=== PATIENT | female | born 2000 | race Caucasian/White ===

== ENCOUNTER 2019-07-05 00:20 | Observation (INO) ==
[2019-07-05] MEDS ORDERED: DOCUSATE SODIUM 100 MG CAPSULE PO PRN (03:27)
[2019-07-05] MEDS ORDERED: ONDANSETRON 4 MG/2 ML VIAL IV PRN (03:27)
[2019-07-05] MEDS ORDERED: NICOTINE 21 MG/24 HR PATCH TRANSDERM PRN (03:27)
[2019-07-05] MEDS ORDERED: MAGNESIUM SULF RIDER 2 GM in PREMIX 1 EACH IV PRN (04:39)
[2019-07-05] MEDS ORDERED: MAGNESIUM SULF RIDER 4 GM in PREMIX 1 EACH IV PRN (04:39)
[2019-07-05] MEDS: ACETAMINOPHEN 325 MG TABLET PO PRN ×2 (04:46→11:25)
[2019-07-05 05:05] LABS: Basophils # 0.1 10*3/uL (0.0-0.2); Basophils % 0.8 % (0.0-0.8); Eosinophils # 0.1 10*3/uL (0.0-0.87); Eosinophils % 1.8 % (0.00-10.9); Hematocrit 38.7 VOL% (35.7-47.0); Hemoglobin 13.1 GM/DL (12.0-16.0); Immature Granulocytes % 0.5 %; Immature Granulocytes Absolute 0.03 #; Lymphocytes # 2.8 10*3/uL (1.4-4.0); Lymphocytes % 42.6 % (21.3-54.2); Mean Corpuscular HGB Conc 33.9 GM/DL (32-36); Mean Corpuscular Volume 90.2 FL (87-102); Mean Platelet Volume 10.1 FL (9.6-12.0); Monocytes % 9.6 % (1.7-12.7); Neutrophils % 44.7 % (38.7-73.9); Platelet Count 269 T/CUMM (130-400); Red Blood Count 4.29 MC/CUMM (3.8-5.5); Red Cell Distribution Width 12.7 % (9.3-17.3); White Blood Count 6.6 T/CUMM (4-12)
[2019-07-05 05:07] LABS: Partial Thromboplastin Time 28.6 SECS (20.8-36.0)
[2019-07-05 05:45] LABS: Albumin 3.5 G/DL (3.4-5.0); Bilirubin,Total 0.4 MG/DL (0.2-1.0); Calcium 8.7 MG/DL (8.5-10.1); Osmolality,Calculated 275.5 MOS/KG (273-304); Thyroid Stimulating Hormone 1.38 uIU/ml (0.358-3.74); Total Protein 7.2 G/DL (6.4-8.3); VLDL CHOLESTEROL 36.2 MG/DL
[2019-07-05] MEDS ORDERED: ENOXAPARIN 40 MG/0.4 ML SYRINGE SUBCUT SCH (06:00)
[2019-07-05] MEDS ORDERED: AMOXICILLIN 500 MG CAPSULE PO SCH (08:00)
[2019-07-05] MEDS ORDERED: POTASSIUM CHLORIDE 20 MEQ TABLET PO ONE (08:32)
[2019-07-05] MEDS ORDERED: POTASSIUM CHLORIDE 20 MEQ TABLET PO PRN (08:34)
[2019-07-05] MEDS ORDERED: predniSONE 10 MG TABLET PO SCH (09:00)
[2019-07-05] MEDS ORDERED: ASPIRIN EC 81 MG TABLET PO SCH (09:00)
[2019-07-05] MEDS ORDERED: ACYCLOVIR 200 MG CAPSULE PO SCH (10:00)
[2019-07-05 12:52] VITALS: BP 115/69
== END 2019-07-05 13:49 | disposition home or self-care (01) ==
LOC: N.TELEN → SUATTDRO 01:51
PROVIDERS: ADMIT Internal Medicine; ATTEND Emergency Medicine

== ENCOUNTER 2022-05-27 19:55 | Inpatient (IN) ==
[2022-05-27] MEDS ORDERED: OXYTOCIN/LR 20 UNIT/1,000 ML BAG IV ONE (20:20)
[2022-05-27] MEDS ORDERED: miSOPROStoL 200 MCG TABLET RECTAL PRN (20:20)
[2022-05-27] MEDS ORDERED: LACTATED RINGERS 500 ML IV PRN (20:20)
[2022-05-27] MEDS ORDERED: ONDANSETRON 4 MG/2 ML VIAL IV PRN (20:20)
[2022-05-27] MEDS ORDERED: TRANEXAMIC ACID 1,000 MG in SODIUM CHLORIDE 0.9% 100 ML IV PRN (20:20)
[2022-05-27] MEDS ORDERED: LACTATED RINGERS 250 ML IV ONE (20:20)
[2022-05-27] MEDS ORDERED: METHYLERGONOVINE 0.2 MG/1 ML AMP IM PRN (20:20)
[2022-05-27] MEDS ORDERED: CARBOPROST TROMETHAMINE 250 MCG/ML AMP IM PRN (20:20)
[2022-05-27 20:50] LABS: Basophils % 0.4 % (0.0-0.8); Eosinophils # 0.1 10*3/uL (0.0-0.87); Eosinophils % 0.8 % (0.00-10.9); Hematocrit 35.6 VOL% (35.7-47.0); Hemoglobin 11.6 GM/DL (12.0-16.0); Immature Granulocytes % 1.1 %; Immature Granulocytes Absolute 0.08 #; Lymphocytes # 1.3 10*3/uL (1.4-4.0); Lymphocytes % 18.8 % (21.3-54.2); Mean Corpuscular HGB Conc 32.6 GM/DL (32-36); Mean Corpuscular Volume 89.7 FL (87-102); Mean Platelet Volume 11.3 FL (9.6-12.0); Monocytes # 0.5 10*3/uL (0.11-0.8); Monocytes % 7.2 % (1.7-12.7); Neutrophils % 71.7 % (38.7-73.9); Platelet Count 225 T/CUMM (130-400); Red Blood Count 3.97 MC/CUMM (3.8-5.5); Red Cell Distribution Width 16.6 % (9.3-17.3); White Blood Count 7.1 T/CUMM (4-12)
[2022-05-27 21:07] LABS: Albumin 2.9 G/DL (3.4-5.0); Bilirubin,Total 0.4 MG/DL (0.20-1.00); Calcium 9.4 MG/DL (8.5-10.1); Osmolality,Calculated 273.5 MOS/KG (273-304); Potassium 3.5 MMOL/L (3.5-5.1); Total Protein 7.1 G/DL (6.4-8.2)
[2022-05-28] MEDS ORDERED: ACETAMINOPHEN 500 MG TABLET PO ONE ×2 (03:00→23:55)
[2022-05-28] MEDS: LACTATED RINGERS 1,000 ML IV SCH ×3 (06:15→13:39)
[2022-05-28] MEDS ORDERED: OXYTOCIN/LR 20 UNIT/1,000 ML BAG IV SCH (06:30)
[2022-05-28] MEDS ORDERED: diphenhydrAMINE 50 MG/1 ML VIAL IV PRN (08:18)
[2022-05-28] MEDS ORDERED: FAMOTIDINE 20 MG/2 ML VIAL IV ONE (08:18)
[2022-05-28] MEDS ORDERED: NALOXONE 0.4 MG/ML VIAL IV PRN (08:18)
[2022-05-28] MEDS ORDERED: PROMETHAZINE 25 MG/1 ML VIAL IM PRN (08:18)
[2022-05-28] MEDS ORDERED: CITRIC ACID/SODIUM CITRATE 30 ML UDCUP PO ONE (08:18)
[2022-05-28] MEDS: fentaNYL 2 MCG/ROPIV 0.2% EPID 100 ML EPIDURAL SCH ×2 (09:50→16:31)
[2022-05-28 10:51] LABS: RBC,Urine <1 /HPF (0-4); Squamous Epithelial Cell,Urine Occasional /HPF (0-10)
[2022-05-28 10:52] LABS: Bilirubin,Urine Negative (Negative); Blood, Urine Negative (Negative); Glucose,Urine (UA) Negative (Negative); Ketones,Urine Negative (Negative); Nitrite,Urine Negative (Negative); Protein,Urine Negative (Negative); Urine Appearance Clear (Clear); Urine Color Yellow (Yellow); Urine Urobilinogen 0.2 eU/dL (<2.0)
[2022-05-29] MEDS ORDERED: AMPICILLIN INJ 2,000 MG in SODIUM CHLORIDE 0.9% 100 ML IV SCH
[2022-05-29] MEDS ORDERED: OXYTOCIN 10 UNIT/ML VIAL IM ONE (00:20)
[2022-05-29] MEDS ORDERED: OXYTOCIN/LR 30 UNIT/1,000 ML BAG IV ONE (00:20)
[2022-05-29] MEDS ORDERED: miSOPROStoL 200 MCG TABLET ONE (00:22)
[2022-05-29] MEDS ORDERED: TRANEXAMIC ACID 1,000 MG/10 ML VIAL ONE (00:22)
[2022-05-29] MEDS ORDERED: SODIUM CHLORIDE 0.9% 0 ML IV ONE (00:23)
[2022-05-29] MEDS ORDERED: OXYTOCIN/LR 20 UNIT/1,000 ML BAG IV ONE ×4 (00:23→05:15)
[2022-05-29] MEDS ORDERED: METHYLERGONOVINE 0.2 MG/1 ML AMP ONE (00:23)
[2022-05-29] MEDS ORDERED: CARBOPROST TROMETHAMINE 250 MCG/ML AMP IM ONE (00:23)
[2022-05-29] MEDS ORDERED: SODIUM BICARBONATE 10 MEQ/10 ML SYRINGE IV ONE (00:48)
[2022-05-29] MEDS ORDERED: LIDOCAINE 2% 5 ML VIAL ONE ×2 (00:48→01:17)
[2022-05-29] MEDS ORDERED: EPINEPHrine 1 MG/ML VIAL ONE (00:48)
[2022-05-29] MEDS ORDERED: ONDANSETRON 4 MG/2 ML VIAL ONE (00:56)
[2022-05-29] MEDS ORDERED: DEXAMETHASONE 4 MG/1 ML VIAL ONE (01:14)
[2022-05-29] MEDS ORDERED: KETOROLAC 30 MG/1 ML VIAL ONE (01:14)
[2022-05-29] MEDS ORDERED: ACETAMINOPHEN INJ 1,000 MG/100 ML VIAL IV ONE (01:14)
[2022-05-29] MEDS ORDERED: buprenorphine HCL 0.3 MG/ML VIAL ONE (01:14)
[2022-05-29 01:32] LABS: Cord Arterial Blood HCO3 21.3 MMOL/L
[2022-05-29 01:34] LABS: Cord Venous Blood HCO3 22.6 MMOL/L; Cord Venous Blood PCO2 40.9 MMHG; Cord Venous Blood PO2 26.8
[2022-05-29] MEDS ORDERED: PHENYLEPHRINE 1 MG/10 ML SYRINGE IV ONE (01:42)
[2022-05-29] MEDS ORDERED: ACETAMINOPHEN 325 MG TABLET PO PRN ×2 (01:46→01:48)
[2022-05-29] MEDS ORDERED: SIMETHICONE CHEW 80 MG TABLET PO PRN ×2 (01:46→01:48)
[2022-05-29] MEDS ORDERED: MAGNESIUM HYDROXIDE SUSP 30 ML UDCUP PO PRN ×2 (01:46→01:48)
[2022-05-29] MEDS ORDERED: ONDANSETRON 4 MG/2 ML VIAL IV PRN ×2 (01:46→01:48)
[2022-05-29] MEDS ORDERED: RHO(D) IMMUNE GLOBULIN 300 MCG SYRINGE IM ONE ×2 (01:48→02:00)
[2022-05-29] MEDS ORDERED: IBUPROFEN 800 MG TABLET PO PRN (01:48)
[2022-05-29] MEDS ORDERED: LACTATED RINGERS 1,000 ML IV SCH ×2 (02:00→02:15)
[2022-05-29] MEDS: ePHEDrine 50 MG/ML VIAL IV PRN ×2 (02:11→02:16)
[2022-05-29] MEDS ORDERED: ACETAMINOPHEN 500 MG TABLET PO SCH (07:30)
[2022-05-29] MEDS: KETOROLAC 30 MG/1 ML VIAL IV SCH ×2 (07:58→15:19)
[2022-05-29] MEDS: AMPICILLIN/SULBACTAM 3,000 MG in SODIUM CHLORIDE 0.9% 100 ML IV SCH ×2 (08:16→15:20)
[2022-05-29] MEDS ORDERED: MULTIVITAMIN (PRENATAL) TABLET PO SCH ×2 (09:00)
[2022-05-29] MEDS ORDERED: DOCUSATE SODIUM 100 MG CAPSULE PO SCH (09:00)
[2022-05-29] MEDS ORDERED: AMPICILLIN/SULBACTAM 3,000 MG in SODIUM CHLORIDE 0.9% 100 ML IV SCH (10:00)
[2022-05-29] MEDS: INSULIN REGULAR 100 UNIT/ML SUBCUT SCH ×2 (11:34→23:45)
[2022-05-29 14:18] LABS: Basophils % 0.2 % (0.0-0.8); Eosinophils % 0.1 % (0.00-10.9); Hematocrit 26.8 VOL% (35.7-47.0); Hemoglobin 8.9 GM/DL (12.0-16.0); Immature Granulocytes % 0.7 %; Immature Granulocytes Absolute 0.13 #; Lymphocytes # 1.2 10*3/uL (1.4-4.0); Lymphocytes % 6.4 % (21.3-54.2); Mean Corpuscular HGB Conc 33.2 GM/DL (32-36); Mean Corpuscular Volume 90.2 FL (87-102); Mean Platelet Volume 10.5 FL (9.6-12.0); Monocytes # 1.1 10*3/uL (0.11-0.8); Monocytes % 5.6 % (1.7-12.7); Platelet Count 156 T/CUMM (130-400); Red Blood Count 2.97 MC/CUMM (3.8-5.5); Red Cell Distribution Width 16.7 % (9.3-17.3); White Blood Count 19.5 T/CUMM (4-12)
[2022-05-29] MEDS: MAGNESIUM HYDROXIDE SUSP 30 ML UDCUP PO PRN (21:03)
[2022-05-29] MEDS: DOCUSATE SODIUM 100 MG CAPSULE PO SCH (21:04)
[2022-05-29] MEDS: SIMETHICONE CHEW 80 MG TABLET PO PRN (21:04)
[2022-05-29] MEDS: IBUPROFEN 800 MG TABLET PO PRN (22:40)
[2022-05-30 05:32] LABS: Basophils % 0.2 % (0.0-0.8); Eosinophils # 0.1 10*3/uL (0.0-0.87); Eosinophils % 0.4 % (0.00-10.9); Hematocrit 27.3 VOL% (35.7-47.0); Hemoglobin 8.5 GM/DL (12.0-16.0); Immature Granulocytes Absolute 0.11 #; Lymphocytes # 1.2 10*3/uL (1.4-4.0); Lymphocytes % 10.1 % (21.3-54.2); Mean Corpuscular HGB Conc 31.1 GM/DL (32-36); Mean Corpuscular Volume 94.1 FL (87-102); Mean Platelet Volume 10.5 FL (9.6-12.0); Monocytes # 0.4 10*3/uL (0.11-0.8); Monocytes % 3.4 % (1.7-12.7); Neutrophils % 84.9 % (38.7-73.9); Platelet Count 141 T/CUMM (130-400); Red Cell Distribution Width 16.9 % (9.3-17.3); White Blood Count 11.5 T/CUMM (4-12)
[2022-05-30] MEDS: MAGNESIUM HYDROXIDE SUSP 30 ML UDCUP PO PRN ×2 (07:45→22:33)
[2022-05-30] MEDS: SIMETHICONE CHEW 80 MG TABLET PO PRN (07:45)
[2022-05-30] MEDS: DOCUSATE SODIUM 100 MG CAPSULE PO SCH ×3 (07:46→22:33)
[2022-05-30] MEDS: IBUPROFEN 800 MG TABLET PO PRN ×2 (07:49→15:34)
[2022-05-30] MEDS: INSULIN REGULAR 100 UNIT/ML SUBCUT SCH ×2 (18:46→18:47)
[2022-05-31 03:39] VITALS: BP 106/45
[2022-05-31] MEDS: INSULIN REGULAR 100 UNIT/ML SUBCUT SCH ×2 (06:00)
[2022-05-31] MEDS: DOCUSATE SODIUM 100 MG CAPSULE PO SCH (08:52)
== END 2022-05-31 11:10 | disposition home or self-care (01) | DRG 540 ==
LOC: N.LDOUT 19:55 → N.LD 19:56 → N.OB 05-29 13:18
PROVIDERS: ADMIT Obstetrics & Gynecology; ATTEND Obstetrics & Gynecology
PROC: LDCSECT (ICD-10-PCS; 2022-05-29 01:00)